=== PATIENT | female | born 1955 | race Two or more races ===

== ENCOUNTER 2025-03-23 19:30 | Emergency (ER) | payer MEDICARE, SELFPAY ==
[2025-03-23 19:31] VITALS: BMI 34.2
[2025-03-23 20:08] VITALS: BP 124/78; PULSE 87; RESP 20; TEMP 37.3; O2SAT 96
--- NOTE | 2025-03-23 20:30 | EKG_ITS ---
[facility] Test Date: 2025-03-23 Pat Name: MAXINE WILLAMS Department: Room: - Gender: Female Assisted Living Associate: : 1955 Requested By: Randy Canales Order Number: [id number] Reading MD: Randy Canales Measurements Intervals [place] Rate: 84 P: 38 IA: 148 QRS: 96 QRSD: 85 T: 65 QT: 371 QTc: 440 Interpretive Statements SINUS RHYTHM BORDERLINE RIGHT AXIS DEVIATION [QRS AXIS > 90] Compared to ECG 05/02/2019 19:31:35 Ventricular premature complex(es) no longer present Left bundle-branch block no longer present /store/S0/[id number].pdf
--- NOTE | 2025-03-23 20:30 | XR_ITS ---
Examination: PA chest single view TECHNIQUE: Upright PA chest single view Date and time: March 23, 20252033 hours INDICATIONS: Nausea vomiting diarrhea today. FINDINGS: Normal heart size. The lungs are clear. The osseous structures are intact. IMPRESSION: No active disease.
--- NOTE | 2025-03-23 20:32 | PD.EDNV ---
Nausea/Vomit./Diarrhea-RME/HPI General Chief complaint: Nausea/Vomiting/Diarrhea Stated complaint: N/V/D X1 DAY Time Seen by Provider: 03/23/25 20:29 Arrival date/time: 03/23/25 19:30 69F with history of CVA, breast cancer, HTN, and DM presents to ED with 1 day of N/V and non-bloody diarrhea. Family members have similar symptoms. Some body aches including CP and L-sided arm pain. Patient denies fall/trauma and SOB. Patient also has intermittent blurry vision and generalized weakness, but have been ongoing since TIA symptoms several years ago. Limitations: no limitations Related Data Home Medications ?Medication ?Instructions ?Recorded ?Confirmed glipizide 10 mg tablet 10 mg PO BID 10/12/17 05/02/19 lisinopril 10 mg tablet 10 mg PO QPM 10/12/17 05/02/19 metformin 500 mg tablet 500 mg PO BID 10/12/17 05/02/19 Previous Rx's ?Medication ?Instructions ?Recorded atorvastatin 80 mg tablet (Lipitor) 80 mg PO QDAY #30 tabs 10/13/17 clopidogrel 75 mg tablet (Plavix) 75 mg PO QDAY #30 tabs 05/04/19 cephalexin 500 mg capsule 500 mg PO QID #20 caps 03/24/25 ondansetron 4 mg disintegrating 4 mg PO Q12H PRN nausea and 03/24/25 tablet vomiting 2 days #4 tabs Allergies Allergy/AdvReac Type Severity Reaction Status Date / Time No Known Allergies Allergy Verified 03/23/25 19:34 Review of Systems Review of Systems Systems Reviewed: All systems reviewed, normal except as documented Constitutional Constitutional: Reports system reviewed and no additional complaints, except as documented, Reports as per HPI, Reports body ache(s), Denies fever(s) and Denies headache(s) ENT Ears, Nose, Mouth, and Throat: Denies disequilibrium and Denies headache(s) Cardiovascular Cardiovascular: Reports system reviewed and no additional complaints, except as documented, Reports as per HPI, Reports chest pain and Denies dyspnea Respiratory Respiratory: Reports system reviewed and no additional complaints, except as documented, Denies cough and Denies dyspnea Gastrointestinal Gastrointestinal: Reports system reviewed and no additional complaints, except as documented, Reports as per HPI, Reports abdominal pain, Reports diarrhea, Reports nausea and Reports vomiting Neurologic Neurologic: Reports system reviewed and no additional complaints, except as documented, Denies confusion, Denies disequilibrium and Denies headache(s) Psychiatric Psychiatric: Denies confusion Past Medical History Past Medical History CARDIAC: Positive Hypertension; Negative Congestive Heart Failure RESPIRATORY: Negative Chronic Obstructive Pulmonary Disease (COPD) GENITOURINARY: Negative Renal Disease REPRODUCTIVE: Positive Breast Cancer ENDOCRINE: Positive Diabetes Mellitus Type 2; Negative Diabetes Mellitus Type 1 OTHER HISTORY: Positive Cancer and Breast Cancer; Negative Autoimmune Disease, MRSA or Clostridium Difficile Family History FAMILY HISTORY: Negative Family Psychiatric Problems, Family Respiratory Disorders, Family Cardiac Disorders, Family Gastrointestinal Problems, Family Cancer, Family Surgery or Family Anesthesia Reaction Surgical History SURGICAL: Positive Mastectomy, Lumpectomy and Hysterectomy Social History SMOKING STATUS: Never smoker SECOND HAND EXPOSURE: No ED Exam General Limitations: Present no limitations General appearance: Present alert and in no apparent distress Head Head exam: Present atraumatic Eye Eye exam: Present normal appearance, PERRL and EOMI ENT ENT exam: Present normal exam, normal oropharynx and mucous membranes moist Neck Neck exam: Present normal inspection, full ROM and trachea midline Chest Chest inspection: Present normal inspection and symmetric chest wall rise Respiratory Respiratory exam: Present normal lung sounds bilaterally Cardiovascular Cardiovascular exam: Present regular rate, normal rhythm and normal heart sounds Abdominal Exam Abdominal exam: Present soft and normal bowel sounds Extremities Exam Extremities exam: Present normal inspection and full ROM Back Exam Back exam: Present normal inspection and full ROM Neurological Exam Neurological exam: Present alert, oriented X3 and CN II-XII intact Psychiatric Psychiatric exam: Present normal affect and normal mood Skin Skin exam: Present warm, dry, intact and normal color Course Quality Measures none Orders Category Date Time Status Bedside COVID-19 Antigen Test NOW Care 03/24/25 03:01 Completed Bedside Influenza A&B Antigen Test NOW Care 03/24/25 03:03 Completed COVID-19 Screening Questionnaire NOW Care 03/24/25 02:[address] Screening NOW Care 03/23/25 22:09 Completed Field Identification Specialist Q4H START 00 Care 03/24/25 00:20 Completed Decision to Admit X1 Care 03/24/25 02:08 Completed EKG (ED ONLY) *Do not use* NOW Care 03/23/25 20:30 Completed IV [Insert IV] STAT Care 03/23/25 22:20 Completed MRI Screening NOW Care 03/24/25 02:[address] abdomen pelvis w con Stat Exams 03/23/25 22:[address] angio chest Stat Exams 03/23/25 22:[address] head/brain wo con Stat Exams 03/23/25 22:32 Completed EKG (ED Only) Stat Exams 03/23/25 20:30 Draft MR MRCP Stat Exams 03/24/25 Completed US gall bladder Stat Exams 03/24/25 00:40 Completed US venous doppler LE LT Stat Exams 03/24/25 12:19 Completed US venous doppler UE LT Stat Exams 03/24/25 14:18 Completed XR chest 1V portable Stat Exams 03/23/25 20:30 Completed XR small bowel single contrast Stat Exams 03/24/25 12:54 Completed BNP [B-Type Natriuretic Peptide] Stat Lab 03/24/25 12:34 Completed CBC Stat Lab 03/23/25 20:56 Completed Comprehensive Metabolic Panel Stat Lab 03/23/25 20:56 Completed INR [Prothrombin Time with INR] Stat Lab 03/23/25 20:56 Completed Lactate (Lactic Acid) Stat Lab 03/23/25 20:56 Completed Lipase Stat Lab 03/23/25 20:56 Completed Magnesium Stat Lab 03/23/25 20:56 Completed PTT [Partial Thromboplastin Time] Stat Lab 03/23/25 20:56 Completed Procalcitonin Stat Lab 03/23/25 20:56 Completed Troponin I Stat Lab 03/23/25 20:56 Completed Troponin I Stat Lab 03/24/25 00:34 Completed Troponin I Stat Lab 03/24/25 06:45 Completed Urinalysis, C/S if Indicated Stat Lab 03/23/25 21:20 Completed Urine Culture Stat Lab 03/23/25 21:20 Received Dicyclomine [Bentyl] Med 03/23/25 20:30 Discontinued 10 mg PO X1 ONE Ketorolac Inj [Toradol Inj] Med 03/24/25 07:50 Discontinued 15 mg IVP X1 ONE Morphine Inj Med 03/24/25 00:19 Discontinued 5 mg IVP X1 ONE Ondansetron Inj [Zofran Inj] Med 03/24/25 00:19 Discontinued 4 mg IV X1 ONE Ondansetron Odt [Zofran Odt] Med 03/23/25 20:30 Discontinued 4 mg PO X1 ONE Ringers Lactated 1000 ml [Lactated Ringers] 1,000 ml Med 03/24/25 02:42 Discontinued IV 125 mls/hr cefTRIAXone/D5w 1gm IV premix [Rocephin/D5w 1gm IV Med 03/24/25 07:50 Discontinued premix] 1 gm in 50 ml IV QDAY Vital Signs Vital signs: Vital Signs Temperature 99.2 F 03/23/25 20:08 Pulse Rate 87 03/23/25 20:08 Respiratory Rate 20 03/23/25 20:08 Blood Pressure 124/78 03/23/25 20:08 Pulse Oximetry (%) 96 03/23/25 20:08 Oxygen Delivery Method Room Air 03/23/25 20:08 O2 at 96% on RA and WNLs Nausea/Vomiting/Diarrhea MDM Narrative MDM Narrative:: 69F with history of CVA, breast cancer, HTN, and DM presents to ED with 1 day of N/V and non-bloody diarrhea. Family members have similar symptoms. Some body aches including CP and L-sided arm pain. Patient denies fall/trauma and SOB. Patient also has intermittent blurry vision and generalized weakness, but have been ongoing since TIA symptoms several years ago. Physical exam reveals no focal ab tenderness. Clear lungs and normal WOB. Speech normal. Gait normal. Normal pupil response and EOM. CN II-XII grossly intact. Patient is afebrile, calm, and alert. Minimal leukocytosis and L shift. CMP unremarkable. EKG is NSR. CXR unremarkable. Trop minimally elevated. Repeat trop WNLs, though still somewhat elevated. Coags normal. UA mild UTI. Procal/lactate normal. CTA unremarkable. CTA reveals enteritis vs early SBO. Unlikely SBO given no N/V during ED visit. . CBD dilated (s/p cholecystectomy), which was confirmed on US. No obvious stone. Spoke to IM resident who reports to Dr. Mccain, who states patient does not need to be admitted (see note). Patient states she's rather just do the MRP in AM since she's here anyway. Care signed out to Dr. Arredondo pending MRCP, repeat trop, and dispo. Patient eventually discharged with no stone in MRCP, neg 3rd trop, and normal small bowel series. Patient data External records reviewed:: [facility] previous records Clinical information provided by:: patient Social determinants that could affect healthcare access:: none Patient has the following chronic illnesses:: CVA, breast cancer, HTN, and DM How is presenting disease/condition affected by chronic disease/condition?: exacerbated by Evaluation data The following diagnostics were reviewed and interpreted by me:: lab results, radiology exam(s) and EKG tracing(s) Lab and/or radiology exams considered but not ordered:: ordered Interpretation Summary: above Medications / Prescriptions Medications / Prescriptions considered but not ordered:: ordered Medication administrations:: Medication Administration History Discontinued Medications Dicyclomine HCl (Dicyclomine 10 Mg Capsule) 10 mg PO X1 ONE Stop: 03/23/25 20:31 Last Admin: 03/23/25 20:35 Dose: 10 mg Documented By: POOJA Lactated Ringer's (Lactated Ringers) 1,000 mls @ 125 mls/hr IV .Q8H ONE Stop: 03/24/25 10:41 Last Infusion: 03/24/25 09:22 Dose: 0 mls/hr Documented By: Infusion: 03/24/25 08:35 Dose: 125 mls/hr Documented By: Infusion: 03/24/25 08:04 Dose: 0 mls/hr Documented By: Admin: 03/24/25 03:15 Dose: 125 mls/hr Documented By: SHAVON Ceftriaxone Sodium/Dextrose (Rocephin/D5w 1gm Iv Premix) 1 gm in 50 mls @ 100 mls/hr IV QDAY KEVIN Stop: 03/31/25 07:49 Last Admin: 03/24/25 09:22 Dose: Not Given Documented By: KERI Non-Admin Reason: Cancelled by Provider Infusion: 03/24/25 08:34 Dose: Infused Documented By: Admin: 03/24/25 08:04 Dose: 100 mls/hr Documented By: KERI Ketorolac Tromethamine (Ketorolac Inj 30 Mg/Ml Vial) 15 mg IVP X1 ONE Stop: 03/24/25 07:51 Last Admin: 03/24/25 07:59 Dose: 15 mg Documented By: KERI Morphine Sulfate (Morphine Sulf Inj 10 Mg/Ml Vial) 5 mg IVP X1 ONE Stop: 03/24/25 00:20 Last Admin: 03/24/25 00:56 Dose: 5 mg Documented By: SHAVON Ondansetron HCl (Ondansetron Odt 4 Mg Tabrap) 4 mg PO X1 ONE; Protocol Stop: 03/23/25 20:31 Last Admin: 03/23/25 20:34 Dose: 4 mg Documented By: POOJA Ondansetron HCl (Ondansetron Inj 2 Mg/Ml Inj 2 Ml) 4 mg IV X1 ONE; Protocol Stop: 03/24/25 00:20 Last Admin: 03/24/25 00:57 Dose: 4 mg Documented By: SHAVON above Consultations Consultation(s) initiated? (list below): Yes Diagnosis Nausea Differential Diagnosis: traveler's diarrhea, food poisoning, gastroenteritis, clostridium difficile infection, drug-induced nausea and vomiting, dehydration and other (ACS, appy, CVA/TIA, CBD dilation, UTI, diarrhea, chest pain) Most likely diagnosis given after review of the tests above:: UTI, diarrhea, chest pain Admission Indicated Admission indicated?: not indicated Admission Request Was there a request for admission?: Yes Admission Attestation Admission request attestation: Discussed case with [Dr. Mccain] from Hospitalist service regarding admission. Discussed patients ED course, exam findings, labs, and radiology results. The Hospitalist [declines] to accept the patient for admission. Disposition Plan Disposition Plan: Discharge Discharge Attestation Discharge Attestation: The patient and all family members were given an opportunity to ask questions and understood the discharge instructions. Discharge instructions specifically effects, indications for sooner follow up or return to the emergency department, and the expected course of current diagnosis. Patient condition: Stable Discharge Plan Plan Patient Disposition: HOME (Self Care) Patient condition on transfer: Stable Prescriptions/Referrals Prescriptions/Med Rec: New cephalexin 500 mg capsule 500 mg PO QID Qty: 20 0RF ondansetron 4 mg tablet,disintegrating 4 mg PO Q12H PRN (Reason: nausea and vomiting) 2 Days Qty: 4 0RF No Action lisinopril 10 mg Tablet 10 mg PO QPM metformin 500 mg Tablet 500 mg PO BID glipizide 10 mg Tablet 10 mg PO BID atorvastatin [Lipitor] 80 mg tablet 80 mg PO QDAY Qty: 30 2RF clopidogrel [Plavix] 75 mg Tablet 75 mg PO QDAY Qty: 30 0RF Referrals: Troy Ross MD [Primary Care Provider] - In 1 week Problem List Clinical Impression: Diarrhea, Urinary tract infection Patient/Caregiver Discharge Instructions Education Materials: ED Diarrhea, Unknown Cause Additional Instructions: Por favor comer payal dieta blanda por la proxima semana e hidratarse muy jane. Si tiene empeoramiento de sintomas o nuevos sintomas de preocupacion por favor regresar de inmediato. Por favor hacer maurilio con akins medico de cabecera dentro de 1-2 orozco. Tambien discutir el hinchazon de akins cuerpo que puede ser relacionado a akins quimio terapia o akins funcion de higado. Regresar de inmediato si tiene nuevos sintomas o sintomas de preocupacion. Print Language: Khmer Stand Alone Forms: Layla Award Info., Patient Portal Info Letter
[2025-03-23] MEDS: ONDANSETRON ODT 4 MG TABRAP PO (20:34)
[2025-03-23] MEDS: DICYCLOMINE 10 MG CAPSULE PO (20:35)
[2025-03-23 21:22] LABS: Lactate (Lactic Acid) 1.4 mMol/L (0.4-2.0)
[2025-03-23 21:25] LABS: Collection Type, Urine Clean Catch
[2025-03-23 21:27] LABS: Basophils # (Auto) 0.0 Thou/mm3 (0.0-0.2); Basophils % (Auto) 0 % (0-2.5); Eosinophils # (Auto) 0.0 Thou/mm3 (0.0-0.5); Eosinophils % (Auto) 0 % (0-10); Hematocrit 40.7 % (36.0-46.0); Hemoglobin 13.6 g/dL (12.0-16.0); Immature Granulocytes Auto 0.02 Thou/mm3 (0.00-0.00); Lymphocytes # (Auto) 0.4 Thou/mm3 (1.0-4.8); Lymphocytes % (Auto) 5 % (10-50); Mean Corpuscular HGB Conc 33.4 g/dl (31.0-37.0); Mean Corpuscular Hemoglobin 31.3 pg (25.0-35.0); Mean Corpuscular Volume 94 fL (80-100); Monocytes # (Auto) 0.2 Thou/mm3 (0.0-0.8); Monocytes % (Auto) 2 % (0-12); Neutrophils # (Auto) 9.1 Thou/mm3 (1.8-7.7); Neutrophils % (Auto) 93 % (37-80); Nucleated Red Blood Cell # 0.00 Thou/mm3 (0.00-0.00); Nucleated Red Blood Cell % 0 /100 WBC (0); Platelet Count 187 Thou/mm3 (140-440); RDW Standard Deviation 44.4 fL (36.4-46.3); Red Blood Count 4.34 Miln/mm3 (4.00-5.20); White Blood Count 9.8 Thou/mm3 (3.6-11.0)
[2025-03-23 21:33] LABS: Bilirubin,Urine Negative (Negative); Blood,Urine 1+ (Negative); Clarity,Urine Clear (Clear/Hazy); Color,Urine Yellow (Lt Yel-Yel); Glucose, Urine 2+ (Negative); Ketones,Urine 1+ (Negative); Leukocyte Esterase,Urine Positive (Negative); Nitrite,Urine Negative (Negative); PH,Urine 7.0 (5.0-7.0); Protein,Urine Trace (Neg - Trace); RBC,Urine 29 /hpf (0-3); Specific Gravity,Urine 1.031 (1.001-1.035); Squamous Epithelial Cell,Urine 3 /hpf (0-5); Urobilinogen,Urine Negative mg/dL (0.0-1.0); WBC,Urine 18 /hpf (0-5)
[2025-03-23 21:34] LABS: Culture Indicated,Urine Yes
[2025-03-23 22:00] LABS: Alanine Aminotransferase 18 U/L (10-49); Albumin, Serum 4.4 gm/dL (3.4-4.8); Albumin/Globulin Ratio 1.8 (1.2-2.2); Alkaline Phosphatase 84 U/L (46-116); Anion Gap 10 (7-16); Aspartate Amino Transferase 22 U/L (0-34); BUN/Creatinine Ratio 21 Ratio (12-20); Bilirubin,Total 0.8 mg/dL (0.3-1.2); Blood Urea Nitrogen 19 mg/dL (9-23); Calcium 9.6 mg/dL (8.3-10.6); Calcium (Corrected) 9.6 mg/dL (8.5-10.1); Carbon Dioxide 30.0 mMol/L (20.0-31.0); Chloride 103 mMol/L (98-107); Creatinine (Component) 0.9 mg/dL (0.6-1.3); Estimated Creatinine Clearance 55.8 mL/min (>60); Globulin 2.5 gm/dL (2.3-3.5); Glucose 227 mg/dL (74-106); Lipase 28 U/L (12-53); Magnesium 1.6 mg/dL (1.6-2.6); Osmolality,Calculated 294 (275-295); Potassium 3.6 mMol/L (3.4-5.1); Procalcitonin 0.10 ng/ml (0.0-0.49); Sodium 143 mMol/L (136-145); Total Protein 6.9 gm/dL (5.7-8.2); eGFR > 60 See Note
[2025-03-23 22:05] LABS: Troponin I 0.054 ng/mL (0.0-0.045)
--- NOTE | 2025-03-23 22:09 | XR_ITS ---
Examination: CT abdomen with intravenous contrast CT pelvis with intravenous contrast 2-D coronal reconstructions 2-D sagittal reconstructions Date and time of exam:March 23, 2025 1109 hours INDICATIONS: Abdominal pain nausea vomiting diarrhea today. CTDI: vol (mGy) 22.6 DLP: (mGycm) 1273 Technique: Multiple axial sections of the abdomen and pelvis have been obtained. 64 slice high-resolution scanner used. 3 mm axial sections have been obtained, post intravenous injection 100 cc Isovue-370 2-D sagittal, coronal reconstructions obtained. Low dose protocols were performed. One or more of the following dose reduction techniques were used; automated exposure control, adjustment of the mA and/or KV according to patient size, use of iterative reconstruction technique. Findings: No focal liver or splenic lesions Absent gallbladder Common bile duct 11 mm No pancreatic mass 7 cm right renal cyst, no hydronephrosis Multiple fluid distended small bowel loops No free air or No diverticulitis Contracted urinary bladder Moderate osteopenia No pericecal inflammatory change IMPRESSION: Enlarged common bile duct no definite stones, consider hepatobiliary sonography follow-up Multiple fluid distended small bowel loops, differential would include ileus, enteritis, early small bowel obstruction not excluded, clinical correlation advised
--- NOTE | 2025-03-23 22:09 | XR_ITS ---
Examination: CTA chest with intravenous contrast 2-D reconstructions 3-D reconstructions, vascular Date and time of exam: March 23, 2025 11:09 PM INDICATIONS: Onset chest pain and shortness of breath today CTDI: vol (mGy) 15.1 DLP: (mGycm) 517 Technique: Multiple axial sections of the thorax have been obtained. 3 mm slice thickness, from below the hemidiaphragms to above the apices of the lungs. Mediastinal and lung density settings have been obtained. 2-D sagittal and coronal reconstructions. 3-D angiographic renderings, 3-D volume renderings, 3D post processing, vascular maximum intensity projections obtained. Contrast administered is 100 cc Isovue 370 intravenous. Low dose protocols were performed. One or more of the following dose reduction techniques were used; automated exposure control, adjustment of the mA and/or KV according to patient size, use of iterative reconstruction technique. Findings: Thyromegaly with 10 mm left thyroid nodule No thoracic aortic aneurysm dilatation or dissection No pulmonary artery filling defects No pneumonia or pulmonary edema or pleural disease The osseous structures are intact IMPRESSION: Negative for pulmonary artery emboli No pneumonia, pulmonary edema, or pleural disease
--- NOTE | 2025-03-23 22:32 | XR_ITS ---
Examination: CT brain head without contrast. 2-D sagittal coronal reconstructions Date and time of exam:March 23, 2025 11:09 PM INDICATIONS: Nausea vomiting diarrhea today CTDI: vol (mGy):43.6 DLP: (mGycm):830 Technique: Multiple CT axial sections of the brain have been obtained, 5 mm slice thickness. Contrast has not been administered. 2-D sagittal, coronal reconstructions have been obtained Low dose protocols were performed. One or more of the following dose reduction techniques were used; automated exposure control, adjustment of the mA and/or KV according to patient size, use of iterative reconstruction technique. Findings: No significant ventricular enlargement. Unchanged old infarct in the left basal ganglia compared with 05/02/2019 Intra-axial or extra-axial hemorrhage density is not seen. No mass effect or midline shift Basal cisterns are not remarkable. Fourth ventricle is midline. Cranial vault intact. Impression: Negative for acute hemorrhage, mass effect or midline shift
[2025-03-23 22:56] LABS: INR 1.1 (0.9-1.3); Partial Thromboplastin Time 24.6 Seconds (22.0-36.0); Prothrombin Time 11.9 Seconds (9.0-12.2)
[2025-03-24] VITALS (7 sets, daily range): BP systolic 110–147; BP diastolic 43–76; PULSE 55–76; RESP 15–20; TEMP 36.8–37.4; O2SAT 92–98
--- NOTE | 2025-03-24 | XR_ITS ---
MRI abdomen, without contrast. MRCP Date and time of exam: March 24, 2025 0938 hours INDICATIONS: Nausea vomiting diarrhea beginning today, markedly enlarged common bile duct on gallbladder sonogram today Technique: Multiple axial and coronal images of the abdomen have been obtained with the Siemens 1.5T MRI scanner. Images obtained included T1 weighted transverse images, T2-weighted transverse images, T2-weighted transverse images fat-suppressed, T2 weighted haste fat suppressed transverse images, T1 weighted images, in and out of phase images, T2-weighted coronal images, breath hold, T2 weighted haze coronal images as well as T2 weighted coronal thick slab images, MRCP. Findings: No focal liver lesions Common hepatic duct 17 mm, no common hepatic or common bile duct stones No pancreatic mass or dilated pancreatic duct No ascites 4.6 cm right renal cyst Aorta normal size No hydronephrosis IMPRESSION: Enlarged common hepatic duct 17 mm but no common hepatic or common bile duct stones
--- NOTE | 2025-03-24 00:40 | XR_ITS ---
Examination: Abdomen sonogram, Limited Date and time of exam: March 24, 2025 0059 hours INDICATIONS: Abdominal pain nausea vomiting today Technique: Real-time fry scale transabdominal sonographic images of the upper abdomen obtained. Findings: Absent gallbladder Marked abnormal enlargement common bile duct 17 mm no definite stones Pancreatic head 2.7 cm Liver 15 cm smooth contour Normal hepatopedal portal venous flow Patent IVC IMPRESSION: Abnormal enlargement common bile duct 1.7 cm, suggest MRCP follow-up
[2025-03-24] MEDS: MORPHINE SULF INJ 10 MG/ML VIAL 5 MG IVP (00:56)
[2025-03-24] MEDS: ONDANSETRON INJ 2 MG/ML INJ 2 ML 4 MG IV (00:57)
[2025-03-24 01:14] LABS: Troponin I 0.035 ng/mL (0.0-0.045)
--- NOTE | 2025-03-24 02:37 | PD.RESCONSUL ---
HPI Data of Consult Requesting Physician: Randy Canales Attending Provider: Dr Mccain Primary Care Provider: Troy Ross MD Consult Narrative Reason for consult: Evaluation of CT finding of dilated CBD and chest/abdominal pain. History of present illness: 69-year-old female past medical Struve diabetes, breast cancer status postmastectomy, cholecystectomy, presents with 1 day of nausea, vomiting, and diarrhea. Several household members developed similar symptoms after a shared meal, consistent with viral gastroenteritis/foodborne illness. She endorsed generalized body aches and transient chest discomfort, which she describes as being in the same location as her prior mastectomy and consistent with her chronic postsurgical pain. She also had epigastric burning and lower abdominal discomfort. She admitted to eating spicy food, which she states reliably triggers reflux symptoms. Denies right upper quadrant pain. No fevers, chills, jaundice. ED course: Afebrile, hemodynamically stable. Troponin peaked at 0.05 --> normalized; EKG benign. Labs: electrolytes, LFTs, lipase all within normal limits. No leukocytosis, no lactic acidosis. CT abdomen/pelvis showed dilated CBD, no stone. cc:: cc: Exam Vital Signs Temp Pulse Resp BP Pulse Ox O2 Del Method 99.4 F 74 19 119/51 L 92 L Room Air 03/24/25 02:33 03/24/25 02:33 03/24/25 02:33 03/24/25 02:33 03/24/25 02:33 03/24/25 02:33 Narrative Exam General: Comfortable, NAD CV: RRR, no murmurs Lungs: Clear to auscultation bilaterally Abdomen: Soft, nondistended, localized tenderness in epigastrium, mild diffuse lower abdominal discomfort, no RUQ tenderness, no guarding or rebound Chest: Tenderness localized to mastectomy site, reproducible, chronic per patient Neuro: Non-focal Results Labs 03/23/25 20:56 03/23/25 20:56 Labs: Short CBC 03/23/25 Range/Units 20:56 WBC 9.8 (3.6-11.0) Thou/mm3 Hgb 13.6 (12.0-16.0) g/dL Hct 40.7 (36.0-46.0) % Plt Count 187 (140-440) Thou/mm3 BMP 03/23/25 20:56 Sodium 143 Potassium 3.6 Chloride 103 Carbon Dioxide 30.0 BUN 19 Creatinine 0.9 Glucose 227 H Calcium 9.6 Cardiac Enzymes 03/23/25 03/24/25 Range/Units 20:56 00:34 Troponin I 0.054 H* 0.035 (0.0-0.045) ng/mL Liver Function 03/23/25 Range/Units 20:56 Total Bilirubin 0.8 (0.3-1.2) mg/dL AST 22 (0-34) U/L ALT 18 (10-49) U/L Alkaline Phosphatase 84 (46-116) U/L Albumin 4.4 (3.4-4.8) gm/dL Urine 03/23/25 Range/Units 21:20 Urine Color Yellow (Lt Yel-Yel) Urine Clarity Clear (Clear/Hazy) Urine pH 7.0 (5.0-7.0) Ur Specific [place] 1.031 (1.001-1.035) Urine Protein Trace (Neg - Trace) Urine Glucose (UA) 2+ A (Negative) Quality Measures Quality Measures VTE prophylaxis Advance care planning discussed with:: patient and child Medications Home Medications and Allergies Home Medications ?Medication ?Instructions ?Recorded ?Confirmed ?Type glipizide 10 mg tablet 10 mg PO BID 10/12/17 05/02/19 History lisinopril 10 mg tablet 10 mg PO QPM 10/12/17 05/02/19 History metformin 500 mg tablet 500 mg PO BID 10/12/17 05/02/19 History Allergies Allergy/AdvReac Type Severity Reaction Status Date / Time No Known Allergies Allergy Verified 03/23/25 19:34 Visit Medications Discontinued Medications Dicyclomine HCl (Dicyclomine 10 Mg Capsule) 10 mg PO X1 ONE Stop: 03/23/25 20:31 Last Admin: 03/23/25 20:35 Dose: 10 mg Morphine Sulfate (Morphine Sulf Inj 10 Mg/Ml Vial) 5 mg IVP X1 ONE Stop: 03/24/25 00:20 Last Admin: 03/24/25 00:56 Dose: 5 mg Ondansetron HCl (Ondansetron Odt 4 Mg Tabrap) 4 mg PO X1 ONE; Protocol Stop: 03/23/25 20:31 Last Admin: 03/23/25 20:34 Dose: 4 mg Ondansetron HCl (Ondansetron Inj 2 Mg/Ml Inj 2 Ml) 4 mg IV X1 ONE; Protocol Stop: 03/24/25 00:20 Last Admin: 03/24/25 00:57 Dose: 4 mg Assessment & Plan Plan 69F with PMH DM2, breast ca s/p mastectomy, and cholecystectomy presenting with 1 day of N/V/D; CT showed dilated CBD likely incidental post-cholecystectomy (normal LFTs, no RUQ pain), overall picture consistent with viral gastroenteritis, reflux-related epigastric pain, and chronic post-mastectomy chest wall pain, stable for discharge with supportive care. # Incidental CBD dilation Seen on CT. Patient is s/p cholecystectomy, LFTs within normal limits, no RUQ pain, no systemic signs of infection. Dilation is commonly seen post-cholecystectomy and appears incidental. Plan: No further inpatient workup needed. Outpatient GI follow-up if symptoms develop. # Infectious gastroenteritis, unspecified N/V/D with household members affected, short duration, benign labs, stable vitals. Plan: Supportive care, oral hydration, antiemetics PRN, discharge if tolerating PO. #Gastroesophageal reflux disease without esophagitis Localized epigastric discomfort, triggered by spicy food, known reflux history. Plan: Continue reflux medications, dietary modification, consider PPI/H2 sola. # Chronic post-mastectomy chest wall pain Chest discomfort in same distribution as prior mastectomy, reproducible, unchanged from baseline. Troponin normalized, EKG benign. Plan: Reassure, no evidence of ACS. Outpatient management. ----- Plan discussed with attending physician Dr. Kalyn Lira MD PGY-1 Internal Medicine
--- NOTE | 2025-03-24 02:55 | PRELIM_ITS ---
Gallbladder ultrasound. March 24, 2025 at 0059 hours Clinical History: CBD dilation; s/p gerson. Comparison: No prior study is available for comparison. Findings: Liver is 15 cm long. Common bile duct is 1.7 cm in diameter. Pancreas is unremarkable to the extent visualized. Main portal vein is antegrade. Inferior vena cava is unremarkable. Postcholecystectomy. There is free fluid. Impression: Dilated common bile duct, may be secondary to cholecystectomy. Consider further ultrasound if there is concern for obstruction. Report Electronically Signed By: Judah Hinkle 03/24/2025 2:54:48 AM [EST]
[2025-03-24] MEDS: RINGERS LACTATED 1000 ML 1,000 ML 125 ML IV (03:15)
--- NOTE | 2025-03-24 06:31 | EDNOTE_ITS ---
Emergency Room Addendum <Nicole Acuna - Last Filed: 03/24/25 11:10> Addendum Narrative: 0600: Care assumed from JOSS Canales, the previous shift emergency physician. Past medical, surgical, social and family history reviewed. Vitals and home medications reviewed. I will assume the care of the patient at this time, pending MRCP, delta trop, and final disposition. Please refer to the emergency department record for history and examination from initial visit.?The following addendum documentation note is intended to reflect any pending information, findings, or radiology results not included in the patient?s initial chart. Patient presents w/ abd pain, multiple family member at home with similar symptoms. Prior provider ordered labs, CT. Labs w/o acute hematologic or metabolic abnormality. Trop not elevated, EKG w/o evidence of ischemia or arrythmia, nl int non spec T wave changes not a cardiac alert. Performed 03/23/25 20:41. UA w/ 29 RBCs adn 18WBCs, leuk est positive. Concern for UTI. Abx provided. CTA chest with thyromegaly. CT abd with CBD 11 mm (patient is s/p cholecystectomy), 7 cm right renal cyst, Multiple fluid distended small bowel loops concern for ileus, enteritis. O/n provider attempted to admit patient, however, was told symptoms not likely bowel obst. Patient signed out to me pending MRCP. 1107: I spoke with radiologist Dr. Marshall regardign no comment about the common bile duct. States the common bile duct is not enlarged. RADIOLOGY Ordering Physician: Randy Canales PA-C Date of Service: 03/24/25 Procedure(s): MR MRCP Accession Number(s): [id number] cc: Troy Ross MD; Elder Marshall MD; Randy Canales PA-C~ MRI abdomen, without contrast. MRCP Date and time of exam: March 24, 2025 0938 hours INDICATIONS: Nausea vomiting diarrhea beginning today, markedly enlarged common bile duct on gallbladder sonogram today Technique: Multiple axial and coronal images of the abdomen have been obtained with the Siemens 1.5T MRI scanner. Images obtained included T1 weighted transverse images, T2-weighted transverse images, T2-weighted transverse images fat-suppressed, T2 weighted haste fat suppressed transverse images, T1 weighted images, in and out of phase images, T2-weighted coronal images, breath hold, T2 weighted haze coronal images as well as T2 weighted coronal thick slab images, MRCP. Findings: No focal liver lesions Common hepatic duct 17 mm, no common hepatic or common bile duct stones No pancreatic mass or dilated pancreatic duct No ascites 4.6 cm right renal cyst Aorta normal size No hydronephrosis IMPRESSION: Enlarged common hepatic duct 17 mm but no common hepatic or common bile duct stones Dictated By: Elder Marshall MD Signed By: <Electronically signed by Elder Marshall MD in OV>03/24/25 1101 <Sandy Arredondo MD - Last Filed: 03/24/25 11:43> Addendum Narrative: 0600: Care assumed from JOSS Canales, the previous shift emergency physician. Past medical, surgical, social and family history reviewed. Vitals and home medications reviewed. I will assume the care of the patient at this time, pending MRCP, delta trop, and final disposition. Please refer to the emergency department record for history and examination from initial visit.?The following addendum documentation note is intended to reflect any pending information, findings, or radiology results not included in the patient?s initial chart. Patient presents w/ abd pain, multiple family member at home with similar symptoms. Prior provider ordered labs, CT. Labs w/o acute hematologic or metabolic abnormality. Trop not elevated, EKG w/o evidence of ischemia or arrythmia, nl int non spec T wave changes not a cardiac alert. Performed 03/23/25 20:41. UA w/ 29 RBCs adn 18WBCs, leuk est positive. Concern for UTI. Abx provided. CTA chest with thyromegaly. CT abd with CBD 11 mm (patient is s/p cholecystectomy), 7 cm right renal cyst, Multiple fluid distended small bowel loops concern for ileus, enteritis. O/n provider attempted to admit patient, however, was told symptoms not likely bowel obst. Patient signed out to me pending MRCP. 1107: MRCP with evidence of dilated common hepatic duct however no evidence of stone, no other abnormalities appreciated. I spoke with radiologist Dr. Marshall regardig MRCP report with no comment about the common bile duct. States the common bile duct is not enlarged and there are no other abnormalities appreciated. On reevaluation patient hemodynamically stable not in distress tolerating oral intake, symptoms resolved. Will discharge home with close return precautions and follow-up with primary care doctor. Given symptoms are present and multiple family members at home, concern the patient may have a viral etiology for symptoms however given her workup today I did stress the importance of follow-up with her provider and close return precautions. Patient will be treated for urinary tract infection as well RADIOLOGY Ordering Physician: Randy Canales PA-C Date of Service: 03/24/25 Procedure(s): MR MRCP Accession Number(s): [id number] cc: Troy Ross MD; Elder Marshall MD; Randy Canales PA-C~ MRI abdomen, without contrast. MRCP Date and time of exam: March 24, 2025 0938 hours INDICATIONS: Nausea vomiting diarrhea beginning today, markedly enlarged common bile duct on gallbladder sonogram today Technique: Multiple axial and coronal images of the abdomen have been obtained with the Siemens 1.5T MRI scanner. Images obtained included T1 weighted transverse images, T2-weighted transverse images, T2-weighted transverse images fat-suppressed, T2 weighted haste fat suppressed transverse images, T1 weighted images, in and out of phase images, T2-weighted coronal images, breath hold, T2 weighted haze coronal images as well as T2 weighted coronal thick slab images, MRCP. Findings: No focal liver lesions Common hepatic duct 17 mm, no common hepatic or common bile duct stones No pancreatic mass or dilated pancreatic duct No ascites 4.6 cm right renal cyst Aorta normal size No hydronephrosis
[2025-03-24 07:11] LABS: Troponin I < 0.020 ng/mL (0.0-0.045)
[2025-03-24] MEDS: KETOROLAC INJ 30 MG/ML VIAL 15 MG IVP (07:59)
[2025-03-24] MEDS: cefTRIAXone/D5w 1gm IV premix 1 GM/50 ML BAG IV (08:04)
--- NOTE | 2025-03-24 12:19 | XR_ITS ---
Examination: Duplex scan of the lower extremity, unilateral left complete Date and time of exam: April 03, 2025 1258 hours INDICATIONS: Left leg pain beginning one year ago Technique: Duplex scan of the extremity veins using B-mode/grayscale imaging and Doppler spectral analysis and color flow Attention is directed to internal echogenicity, compression and augmentation involving these veins, color flow assessment, spectral analysis Findings: Major deep venous structures in the extremity demonstrate normal course and caliber. There is no evidence of deep vein thrombosis. Normal color flow and spectral analysis Impression: Negative for DVT..
--- NOTE | 2025-03-24 12:54 | XR_ITS ---
Examination: Upper GI series AP abdomen 3 views Date and time: March 24, 2025 1326 hours INDICATIONS: Mid abdominal pain this week, multiple fluid distended small bowel loops on CT abdomen pelvis March 23, 2025 TECHNIQUE AND FINDINGS: Patient administered 120 cc Gastrografin through the orogastric tube Immediate AP abdomen shows contrast in mildly distended small bowel loops Abdomen films at 30 minutes one hour 30 minutes demonstrate contrast in mildly distended ileal loops however contrast present throughout the colon IMPRESSION: Negative for small bowel obstruction, no further films are needed
[2025-03-24 13:02] LABS: B-Type Natriuretic Peptide 27 pg/mL (0-100)
--- NOTE | 2025-03-24 14:18 | XR_ITS ---
Examination: Duplex scan of the upper extremity, unilateral left Date and time of exam: March 24, 2025 1427 hours INDICATIONS: Left arm swelling and pain beginning 8 months ago Technique: Duplex scan of the extremity veins using B-mode/grayscale imaging and Doppler spectral analysis and color flow Attention is directed to internal echogenicity, compression and augmentation involving these veins, color flow assessment, spectral analysis Findings: Major deep venous structures in the extremity demonstrate normal course and caliber. There is no evidence of deep vein thrombosis. Normal color flow and spectral analysis Impression: Negative for DVT..
--- NOTE | 2025-03-24 16:00 | PD.EDADDENDU ---
Emergency Room Addendum <Nicole Acuna - Last Filed: 03/24/25 16:02> Addendum Narrative: 1240: I spoke with surgeon Dr. Poole. Discussed pmhx, ED course, exam findings, and radiology reports. Recommends small bowel series with gastrograffin and admission to hospitalist if indicated. US doppler LE LT is negative for DVT. XR small bowel series is negative for small bowel obstruction, no further films are needed. <Sandy Arredondo MD - Last Filed: 04/25/25 07:54> Addendum Narrative: 1240: I spoke with surgeon Dr. Poole. Discussed pmhx, ED course, exam findings, and radiology reports. Recommends small bowel series with gastrograffin and admission to hospitalist if indicated. US doppler LLE and LUE is negative for DVT. XR small bowel series is negative for small bowel obstruction, no further films are needed. BNP not elevated On reevaluation patient hemodynamically stable, not in distress, tolerating oral intake will discharge home close return precautions follow-up with her primary care doctor. All questions answered.
== END 2025-03-24 16:30 | disposition home or self-care (01) ==
PROVIDERS: Physician Assistant; Emergency Provider Emergency Medicine; PCP Family Medicine
DX: R19.7 Diarrhea, unspecified (principal); N39.0 Urinary tract infection, site not specified; Z86.73 Personal history of transient ischemic attack (TIA), and cerebral infarction without residual deficits; E11.9 Type 2 diabetes mellitus without complications; I10 Essential (primary) hypertension; R07.9 Chest pain, unspecified; M79.603 Pain in arm, unspecified; H53.8 Other visual disturbances
CPT/HCPCS: 36415; 70450; 71045; 71275; 74177; 74181; 74250; 76705; 80053; 81001; 83605; 83690; 83735; 83880; 84145; 84484; 85025; 85610; 85730; 87086; 87400; 87811; 93005; 93971; 96361; 96365; 96375; 99284; A4649; J0696; J1885; J2270; J2405; J7120; Q0162; Q9963; Q9967; A9270